=== PATIENT | female | born 1970 | race Caucasian/White ===

== ENCOUNTER → 2019-02-26 07:47 | Outpatient (CLI) | payer OTHER | END | disposition home or self-care (01) | LOC: D.MRI 07:47 | PROVIDERS: ATTEND Clinical Nurse Specialist Family Health | DX: M79.671 Pain in right foot (principal) ==

== ENCOUNTER 2020-03-24 11:00 | Outpatient (CLI) | payer OTHER | END 2020-03-24 13:00 | disposition home or self-care (01) | LOC: D.MAMMO 11:00 | PROVIDERS: ATTEND Clinical Nurse Specialist Family Health | DX: Z12.31 Encounter for screening mammogram for malignant neoplasm of breast (principal) ==